=== PATIENT | male | born 1975 | race Caucasian/White ===

== ENCOUNTER 2018-05-08 11:27 | Inpatient (IN) | payer MEDICAID ==
[~2018-05-08] VITALS: Ht 195.6 cm; Wt 108.9 kg
--- NOTE | 2018-05-08 12:30 | NUR ---
PAIN AND SWELLING TO L L E SINCE LAST NIGHT, NAD NOTED, VSS, RESP EVEN AND UNLABORED, PT WAS PUT ON MONITOR, AND HOSPITAL GOWN. AT BS.
[2018-05-08] MEDS ORDERED: ENOXAPARIN SODIUM 60 MG/0.6 ML DISP.SYRIN SQ ONE ×2 (13:00→13:11)
[2018-05-08] MEDS ORDERED: MORPHINE SULFATE INJ 2 MG/ML DISP.SYRIN IV ONE (13:00)
[2018-05-08] MEDS ORDERED: ONDANSETRON HCL/PF 4 MG/2 ML VIAL IVP ONE (13:00)
[2018-05-08] MEDS ORDERED: IV NS 0.9% 1,000 ML BAG IV ONE (13:00)
[2018-05-08 13:06] LABS: BASOPHILS # (AUTO) 0.3 /CMM (0.0-0.2); EOSINOPHILS % (AUTO) 0.6 % (0.0-6.0); HEMATOCRIT 37 % (39-51); HEMOGLOBIN 12.4 g/dL (13.5-17.5); LYMPHOCYTES # (AUTO) 2.2 /CMM (0.8-4.8); LYMPHOCYTES % (AUTO) 23.8 % (20.0-44.0); MEAN CORPUSCULAR HEMOGLOBIN 31 PG (26.0-33.0); MEAN CORPUSCULAR HGB CONC 34 g/dl (31.0-36.0); MEAN CORPUSCULAR VOLUME 93 fL (80-96); MONOCYTES % (AUTO) 10.9 % (2.0-12.0); NEUTROPHILS # (AUTO) 5.7 /CMM (1.8-8.9); NEUTROPHILS % (AUTO) 61.7 % (43.0-81.0); PLATELET COUNT (AUTO) 204 /CMM (150-450); RDW COEFFICIENT OF VARIATION 11.8 (11.5-15.0); RED BLOOD CELL COUNT(AUTO) 3.98 MIL/uL (4.5-6.0); WHITE BLOOD COUNT (AUTO) 9.3 K/uL (4.3-11.0)
[2018-05-08] MEDS ORDERED: ONDANSETRON HCL/PF 4 MG/2 ML VIAL ONE (13:11)
[2018-05-08] MEDS ORDERED: MORPHINE SULFATE INJ 4 MG/ML DISP.SYRIN ONE (13:11)
[2018-05-08] MEDS ORDERED: ENOXAPARIN SODIUM 40 MG/0.4 ML DISP.SYRIN SQ ONE (13:11)
[2018-05-08 13:13] LABS: CALCIUM, SERUM 8.3 mg/dL (8.5-10.1); CREATININE 0.9 mg/dL (0.6-1.3); POTASSIUM 3.5 mmol/L (3.5-5.1)
[2018-05-08 13:17] LABS: INR 0.95 (0.85-1.15)
[2018-05-08 13:18] LABS: ALBUMIN 3.9 g/dL (3.4-5.0); BILIRUBIN,DIRECT 0.4 mg/dL (0.0-0.2); BILIRUBIN,TOTAL 1.5 mg/dL (0.2-1.0); TOTAL PROTEIN, SERUM 7.1 g/dL (6.4-8.2)
--- NOTE | 2018-05-08 13:58 | NUR ---
PAGED [facility] FOR PANEL - APPLICATIONS SUPPORT LEAD DR. QUINTEROS
[2018-05-08] MEDS ORDERED: [UNRECOGNIZED DRUG - CODE] SQ (14:19)
--- NOTE | 2018-05-08 14:19 | NUR ---
CALLED NURSE SUP FOR BED
--- NOTE | 2018-05-08 14:39 | NUR ---
CALLED NURSE SUP FOR TELE BED
--- NOTE | 2018-05-08 15:30 | NUR ---
RN NOTES PT NOTED THAT NO ONE HAD LOOKED AT [facility] [place] ON HIS ARMS THAT HAD STARTED TO APPEAR AROUND 1 MONTH AGO. PER PREVIOUS SHIFT RN, PT HAS BEEN REFUSING SKIN CHECKS. PT AGREED TO HAVE WOUND CONSULT ORDERED TO ASSESS [facility] AND DECIDE ON A TREATMENT PLAN. Addendum: 05/08/18 at 1922 by MICHELLE NEWMAN RN DISREGARD NOTE, WRONG PATIENT
[2018-05-08 16:00] VITALS: BP 131/81
--- NOTE | 2018-05-08 16:00 | NUR ---
RN NOTES PT WAS BROUGHT TO THE UNIT IN STABLE CONDITION, ALERT AND ORIENTED X4. PT ON RA, RESPIRATIONS ARE EVEN AND UNLABORED. IV ON RAC INTACT AND SL. NO SIGNS OF DISTRESS NOTED. SAFETY MEASURES ARE IN PLACE, CALL LIGHT IS IN REACH. WILL CONTINUE TO MONITOR.
[2018-05-08] MEDS ORDERED: HEPARIN INFUSION/D5W 500 ML IV PRN (18:00)
[2018-05-08] MEDS ORDERED: MAGNESIUM HYDROXIDE 30 ML UDC PO PRN (18:00)
[2018-05-08] MEDS ORDERED: ONDANSETRON HCL/PF 4 MG/2 ML VIAL IVP PRN (18:00)
[2018-05-08] MEDS ORDERED: MAG HYDROX/AL HYDROX/SIMETH 30 ML UDC PO PRN (18:00)
[2018-05-08] MEDS ORDERED: Z GUARD REMEDY 2 OZ OINT TP PRN (18:00)
[2018-05-08] MEDS ORDERED: HYDROCODONE/APAP 5/325MG 1 EACH TABLET PO PRN (18:00)
[2018-05-08] MEDS ORDERED: MORPHINE SULFATE INJ 2 MG/ML DISP.SYRIN IV PRN (18:00)
[2018-05-08] MEDS ORDERED: ACETAMINOPHEN 325 MG TABLET PO PRN (18:00)
[2018-05-08] MEDS ORDERED: ZOLPIDEM TARTRATE 5 MG TABLET PO PRN (18:00)
[2018-05-08] MEDS: MORPHINE SULFATE INJ 4 MG/ML DISP.SYRIN IV PRN ×2 (18:25→22:31)
--- NOTE | 2018-05-08 18:51 | NUR ---
RN NOTES PT IS SITTING UP IN BED, AWAKE AND RESTING COMFORTABLY. PT ON RA, RESPIRATIONS ARE EVEN AND UNLABORED. IV ON RAC INTACT AND SL. NO SIGNS OF DISTRESS NOTED. MORPHINE 2MG GIVEN ORDERED FOR PAIN MANAGEMENT. NO SIGNS OF DISTRESS NOTED. SAFETY MEASURES ARE IN PLACE, CALL LIGHT IS IN REACH. WILL ENDORSE TO SCIENTIFIC LABORATORY SUPERVISOR RN FOR CONTINUITY OF CARE.
--- NOTE | 2018-05-08 19:15 | NUR ---
TELE-MS RN NOTES Report received. Patient received in bed, awake and verbally responsive. Alert and oriented x4. Complaints of pain with help of pain mgmt. Awaiting for Heparin bag for heparin drip as ordered. No SOB/labored breathing noted. Not in any type of distress. Safety measures in place. Bed in lowest position with call light within reach. Enforced to call for any assistance. Will continue to monitor and assess patient
[2018-05-08 20:00] VITALS: BP 125/60
--- NOTE | 2018-05-08 20:24 | NUR ---
TELE-MS RN NOTES Confirmed with Dr. Henley to start Heparin drip and bolus at 0100 am and PTT at 0700
[2018-05-09] MEDS ORDERED: HEPARIN SODIUM, PORCINE 5000 UNITS/1 ML VIAL IV ONE (01:00)
[2018-05-09] MEDS: HEPARIN INFUSION/D5W 500 ML IV PRN ×2 (01:08→19:22)
[2018-05-09] MEDS: MORPHINE SULFATE INJ 4 MG/ML DISP.SYRIN IV PRN ×6 (03:07→21:35)
[2018-05-09 07:14] LABS: BASOPHILS % (AUTO) 0.6 % (0.0-2.0); EOSINOPHILS % (AUTO) 3.5 % (0.0-6.0); HEMATOCRIT 37 % (39-51); HEMOGLOBIN 12.5 g/dL (13.5-17.5); LYMPHOCYTES % (AUTO) 47.2 % (20.0-44.0); MEAN CORPUSCULAR HEMOGLOBIN 32 PG (26.0-33.0); MEAN CORPUSCULAR HGB CONC 34 g/dl (31.0-36.0); MEAN CORPUSCULAR VOLUME 95 fL (80-96); MONOCYTES # (AUTO) 0.4 /CMM (0.1-1.30); MONOCYTES % (AUTO) 10.3 % (2.0-12.0); NEUTROPHILS # (AUTO) 1.6 /CMM (1.8-8.9); NEUTROPHILS % (AUTO) 38.4 % (43.0-81.0); PLATELET COUNT (AUTO) 162 /CMM (150-450); RDW COEFFICIENT OF VARIATION 12.8 (11.5-15.0); RED BLOOD CELL COUNT(AUTO) 3.91 MIL/uL (4.5-6.0); WHITE BLOOD COUNT (AUTO) 4.3 K/uL (4.3-11.0)
--- NOTE | 2018-05-09 07:14 | NUR ---
MS RN CLOSING NOTES Report given. Patient remained in bed, awake and comfortable. Alert and oriented x4, verbally responsive. Denies any pain at this moment. Last pain mgmt given at 0300. Heparin drip administered. PTT ordered for 0700. No S&S of bleeding noted or reported. No SOB/labored breathing noted or reported. Not in any type of distress. Afebrile. All needs anticipated and met. Safety measures in place. Bed in locked and lowest position with call light within reach. Endorsed to oncoming shift nurse.
[2018-05-09 07:40] LABS: BILIRUBIN,DIRECT 0.3 mg/dL (0.0-0.2); BILIRUBIN,TOTAL 1.4 mg/dL (0.2-1.0); CALCIUM, SERUM 7.6 mg/dL (8.5-10.1); CREATININE 0.7 mg/dL (0.6-1.3); MAGNESIUM 2.1 mg/dL (1.8-2.4); PHOSPHORUS 2.6 mg/dL (2.5-4.9); POTASSIUM 3.8 mmol/L (3.5-5.1); TOTAL PROTEIN, SERUM 6.6 g/dL (6.4-8.2)
[2018-05-09 07:45] LABS: FERRITIN 208 ng/mL (8-388)
[2018-05-09] MEDS: PANTOPRAZOLE 40 MG TABLET.DR PO SCH (07:45)
--- NOTE | 2018-05-09 07:50 | NUR ---
RN MS NOTES PT IN BED, AWAKE, ALERT AND ORIENTED, WITH COMPLAINT OF LEG PAIN, PAIN MEDICATION GIVEN ORDERED, NOT IN DISTRESS, ON HEPARIN DRIP, CALL LIGHT WITHIN REACH, WILL CONTINUE TO MONITOR, NEEDS ATTENDED.
[2018-05-09 07:58] LABS: IRON, SERUM 120 ug/dl (50-175); TOTAL IRON BINDING CAPACITY 265 ug/dl (250-450)
[2018-05-09 08:00] VITALS: BP 127/77
--- NOTE | 2018-05-09 10:14 | NUR ---
WOUND CARE CONSULT: PT PRESENTS WITH SWELLING TO LEFT LOWER LEG AND BILATERAL PLANTAR CALLUS/BLISTERS, PRESENT ON ADMISSION. RECOMMEND DPM CONSULT. WILL SEE PRN. Addendum: 05/09/18 at 1015 by RAMBO PETERSON WNDNU Amended: Links added.
--- NOTE | 2018-05-09 13:00 | NUR ---
RN MS NOTES PT IN BED, AWAKE, ALERT AND ORIENTED, PAIN MEDS GIVEN ORDERED FOR PAIN MANAGEMENT, PT SEEN BY RAMBO WOUND CARE NURSE, ON HEPARIN DRIP, NO S/S OF BLEEDING NOTED, PT SEEN BY DR. GARVIN, PLAN OF CARE DISCUSSED WITH PT, VERBALIZED UNDERSTANDING, NEEDS ATTENDED.
[2018-05-09 16:00] VITALS: BP 129/81
--- NOTE | 2018-05-09 17:30 | NUR ---
Spoke with patient, he is alert and pleasant. He lives at home with sister. Stated he is ambulatory and independent with adl's and working. Denies any dc planning needs at this time. Addendum: 05/09/18 at 1731 by ZION SUTTON RN Amended: Links added.
--- NOTE | 2018-05-09 18:47 | NUR ---
RN MS NOTES PT IN BED, AWAKE, ALERT AND ORIENTED, SPEAKING ON THE PHONE, PAIN MEDS GIVEN ORDERED, IV FLUIDS INFUSING WELL, PT ON HEPARIN DRIP, NO S/S OF BLEEDING NOTED, CALL LIGHT WITHIN REACH, ALL NEEDS ATTENDED.
--- NOTE | 2018-05-09 19:15 | NUR ---
MS RN INITIAL NOTES Report received. Patient received in bed, awake and verbally responsive. Alert and oriented x4. Pain controlled at the moment. Heparin Drip running as endorsed (no changes per protocol after PTT this morning). No SOB/labored breathing noted. Not in any type of distress. Safety measures in place. Bed in lowest position with call light within reach. Enforced to call for any assistance. Will continue to monitor and assess patient
[2018-05-09 20:00] VITALS: BP 126/67
[2018-05-09] MEDS: NEOMY SULF/BACITRAC ZN/POLY 15 GM TUBE TP SCH (20:03)
[2018-05-10] MEDS: MORPHINE SULFATE INJ 4 MG/ML DISP.SYRIN IV PRN ×3 (02:59→09:11)
[2018-05-10] MEDS: PANTOPRAZOLE 40 MG TABLET.DR PO SCH (06:32)
--- NOTE | 2018-05-10 07:30 | NUR ---
RN MS NOTES PT IN BED, AWAKE, ALERT AND ORIENTED, WITH COMPLAINT OF PAIN TO LEFT LEG, PAIN MED GIVEN BY FUNCTIONAL SUPPORT ANALYST NURSE, NOT IN DISTRESS, ON HEPARIN DRIP, NO S/S OF BLEEDING NOTED, CALL LIGHT WITHIN REACH, NEEDS ATTENDED.
[2018-05-10 08:00] VITALS: BP 157/91
[2018-05-10] MEDS: NEOMY SULF/BACITRAC ZN/POLY 15 GM TUBE TP SCH (08:46)
[2018-05-10] MEDS: HEPARIN INFUSION/D5W 500 ML IV PRN (10:42)
--- NOTE | 2018-05-10 11:00 | NUR ---
MS RN NOTES PATIENT IN BED ALERT ORIENTED X 4. NO ACUTE DISTRESS NOTED.BREATHING UNLABORED. IV ACCESS PATENT AND INTACT.SAFETY MEASURES IN PLACE. CALL LIGHT WITHIN REACH. WILL CONTINUE TO MONITOR ACCORDINGLY.
--- NOTE | 2018-05-10 13:00 | NUR ---
MS RN NOTES PATIENT DISCHARGED HOME AMA IN STABLE CONDITION. NO ACUTE DISTRESS NOTED. BREATHING UNLABORED. RISK AND BENEFITS EXPLAINED, VERBALIZED UNDERSTANDING. PATIENT TEACHING DONE, INSTRUCTED PATIENT TO FOLLOW UP WITH PRIMARY DOCTOR, VERBALIZED UNDERSTANDING. ALL BELONGINGS ACCOUNTED FOR. IV ACCESS REMOVED, NO BLEEDING, NO REDNESS, NO SWELLING NOTED. ASSISTED TO THE LOBBY, PICKED UP BY FRIEND VIA PRIVATE CAR. DR VIRGIE HILL INFORMED.
--- NOTE | 2018-05-10 13:00 | NUR ---
PATIENT REFUSED PHOTO TAKEN.
--- NOTE | 2018-05-10 13:16 | NUR ---
[employer] TR[employer] DRIVER NOTES PATIENT CAME BACK FROM STRESS TEST IN STABLE CONDITION. Addendum: 05/10/18 at 1317 by BRIAN ABEL RN DISREGARD NOTES ABOVE, WRONG PATIENT.
== END 2018-05-10 13:00 | disposition left against medical advice (07) | DRG 197 ==
LOC: ER 11:36 → TELE 15:36 → MED 21:43
PROVIDERS: ADMIT Student in an Organized Health Care Education/Training Program; ATTEND Student in an Organized Health Care Education/Training Program
DX: I82.412 Acute embolism and thrombosis of left femoral vein (principal); D68.59 Other primary thrombophilia; D68.2 Hereditary deficiency of other clotting factors; E83.51 Hypocalcemia; Z91.14 Patient's other noncompliance with medication regimen; Z88.1 Allergy status to other antibiotic agents; Z88.5 Allergy status to narcotic agent; Z88.8 Allergy status to other drugs, medicaments and biological substances; D64.9 Anemia, unspecified; F17.210 Nicotine dependence, cigarettes, uncomplicated
CPT/HCPCS: 36415; 71045-TC; 76700-TC; 80048-TC; 80061-TC; 80076-TC; 82728-TC; 82746; 83540-TC; 83735-TC; 84100-TC; 85025-TC; 85610-TC; 85730-TC; 86706; 87081-TC; 87340; 93971-TC; A4606; J1644; J1650; J2270; J2405; J7030; Z7610